=== PATIENT | male | born 1965 | race Caucasian/White ===

== ENCOUNTER 2017-05-20 12:43 | Inpatient (IN) | payer OTHER ==
[~2017-05-20] VITALS: Ht 193 cm; Wt 142.9 kg
--- NOTE | ~2017-05-20 | EKG ---
[address] [address] ELECTROCARDIOGRAM REPORT Name: LUCINDA DARBY Room #: 214-P [facility] IN M.R.#: [id number] Admission: 05/20/17 Attend Phys: Escobar Bailey Discharge: 05/21/17 Date of : 69 Report #: [id number] THIS REPORT FOR: //name// [facility] Test Date: 2017-05-20 Test Time: 14:50:52 Pat Name: LUCINDA DARBY Department: Room: 214 P Gender: M Line Therapist: Nelsy COLLADO : 1965 Requested By: Hailey Molina Order Number: [id number] MD: Johnny Enriquez Measurements Intervals [place] Rate: 59 P: LA: QRS: -23 QRSD: 103 T: -24 QT: 413 QTc: 410 Interpretive Statements Atrial fibrillation Inferior infarct, age indeterminate No previous ECG available for comparison Electronically Signed On 05-23-2017 22:03:46 CDT by Johnny Enriquez [email or web address] <ELECTRONICALLY SIGNED> By: Johnny Enriquez MD 05/23/17 2203 49 Johnny Enriquez MD /BRIELLE
--- NOTE | ~2017-05-20 | D ---
[facility] [place] [address] DISCHARGE SUMMARY Name: WILNERLUCINDA Rickie Room #: 214-P [facility] IN M.R.#: [id number] Admission: 05/20/17 Attend Phys: Escobar Bailey Discharge: 05/21/17 Date of : 69 Report #: [id number] THIS REPORT FOR: //name// CC: Megan Du DATE OF SERVICE: 05/21/2017 ADMITTING DIAGNOSIS: Symptomatic paroxysmal atrial fibrillation. DISCHARGE DIAGNOSIS: Symptomatic paroxysmal atrial fibrillation. PROCEDURES PERFORMED: 1. Electrical cardioversion. 2. Supervision of conscious sedation. DISCHARGE MEDICATIONS: Home medications with the following changes: 1. Beta blockade is to be at half dosing. 2. Amiodarone 400 mg p.o. t.i.d. times 1 week, then b.i.d. times a week, then q.a.m. times a week and then 200 mg daily. FOLLOWUP: Dr. Bailey in 4 weeks. BRIEF CLINICAL HISTORY: See history and physical in the chart. HOSPITAL COURSE: The patient was admitted to the hospital and underwent standard IV amiodarone load and protocol. He subsequently did not convert spontaneously and he was taken to the cardiac catheterization prep and hold for electrical cardioversion. This was performed without any significant complications, and the patient tolerated procedure well. Discharged to home in stable and improved condition to follow up with previously stated discharge instructions and medications. <ELECTRONICALLY SIGNED> By: Escobar Bailey MD 05/25/17 1315 [id number] Escobar Bailey MD /nt
--- NOTE | ~2017-05-20 | CATHLAB ---
[facility] [address] [place] [address] INVASIVE PROCEDURE REPORT Name: WILNERLUCINDA B Room #: 214-P [facility] IN [facility]#: [id number] Admission: 05/20/17 Attend Phys: Escobar Prieto Discharge: 05/21/17 Date of : 69 Date of Service: 05/23/175 Report #: [id number] THIS REPORT FOR: //name// CC: Megan Du PROCEDURES: 1. Electrical cardioversion. 2. Supervision of conscious sedation. INDICATIONS: A 52-year-old male patient with symptomatic paroxysmal atrial fibrillation with fatigue, tiredness and shortness of breath. 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 AP paddles were placed. Continuous electrocardiographic and oximetric monitoring was performed throughout the entire procedure. A 4 mg of Versed and 50 of Demerol were given intravenously. AP shock at 200 joules biphasic was then performed, which converted the patient to sinus rhythm. Post-procedure, the patient was reversed with 0.4 of Romazicon, 0.4 of Narcan. There were no complications. The patient tolerated the procedure well. <ELECTRONICALLY SIGNED> By: Escobar Bailey MD 05/25/17 1315 2325 08 Escobar Bailey MD /ora
[2017-05-20 13:14] VITALS: BP 122/91
[2017-05-20] MEDS ORDERED: PRADAXA150 MG PO (13:39)
[2017-05-20] MEDS ORDERED: ALLERGY RELIEF180 MG PO (13:40)
[2017-05-20] MEDS ORDERED: TOPROL XL50 MG (13:41)
[2017-05-20 16:02] LABS: HEMATOCRIT 43.9 % (42.0-52.0); HEMOGLOBIN 14.8 gm/dL (14.0-18.0); MCH 30.9 pg (26.0-34.0); MCHC 33.7 g/dL (28.0-37.0); MCV 91.8 fL (80.0-100.0); RBC 4.79 mil/uL (4.50-6.00); RDW 13.4 % (10.5-14.5); WBC 6.8 thou/uL (4.0-11.0)
[2017-05-20 16:17] LABS: ALBUMIN 3.7 g/dL (3.4-5.0); CALCIUM 8.8 mg/dL (8.5-10.1); CREATININE 1.1 mg/dL (0.7-1.3); POTASSIUM 3.8 mmol/L (3.5-5.1); TOTAL BILIRUBIN 1.6 mg/dL (<0.1-1.0); TOTAL PROTEIN 7.2 g/dL (6.4-8.2)
[2017-05-20 16:27] VITALS: BP 127/88
[2017-05-20 19:37] VITALS: BP 121/80
[2017-05-21 07:44] VITALS: BP 123/84
[2017-05-21 12:50] VITALS: BP 103/74
[2017-05-21] MEDS ORDERED: PACERONE 200 M200 M1 PO (13:21)
[2017-05-21 14:30] VITALS: BP 103/74
== END 2017-05-21 18:18 | disposition home or self-care (01) | DRG 310 ==
LOC: 2N 12:43
PROVIDERS: Nurse Practitioner Gerontology
PROC: 5A2204Z Restoration of Cardiac Rhythm, Single (ICD-10-PCS; principal; 2017-05-21)
DX: I48.0 Paroxysmal atrial fibrillation (principal); G47.33 Obstructive sleep apnea (adult) (pediatric); K21.9 Gastro-esophageal reflux disease without esophagitis; Z82.49 Family history of ischemic heart disease and other diseases of the circulatory system
CPT/HCPCS: 10797